=== PATIENT | female | born 1945 | race Caucasian/White ===

== ENCOUNTER 2019-08-28 07:55 | Emergency (ER) | payer MEDICARE, OTHER ==
[2019-08-28 08:24] VITALS: BP 179/92; PULSE 69
--- NOTE | 2019-08-28 08:50 | EDM.PDOC ---
ED HPI GENERAL MEDICAL PROBLEM - General Chief Complaint: Back Pain or Injury Stated Complaint: BACK PAIN Time Seen by Provider: 08/28/19 08:35 Source of Information: Reports: Patient, Family History Limitations: Reports: No Limitations - History of Present Illness INITIAL COMMENTS - FREE TEXT/NARRATIVE: 73-year-old female with chronic low back pain, has intermittent flareups of pain that usually resolve after 1 to 2 days. This current flareup started 3 days ago and does not seem to be settling down, she took 2 doses of tramadol, did her stretching and local heat and it still is bothering her so she came in to be seen. Her pain is in the right lower back extending into the buttock but has no radiculopathy, paresthesias or weakness of the leg, no incontinence. No new trauma. Onset: Gradual Duration: Day(s): (3 to 4 days of symptoms) Location: Reports: Back (Right lower back) Quality: Reports: Sharp, Stabbing Severity: Moderate Worsens with: Reports: Movement Context: Denies: Lifting, Trauma Associated Symptoms: Reports: No Other Symptoms Lower Back Pain Score (Numeric/FACES): 9 - Related Data Allergies Allergy/AdvReac Type Severity Reaction Status Date / Time erythromycin base Allergy Cannot Verified 08/28/19 08:21 Remember latex Allergy Rash Verified 08/28/19 08:21 tape Allergy Cannot Uncoded 08/28/19 08:21 Remember Home Meds: Home Meds Aspirin [Adult Low Dose Aspirin EC] 81 mg PO DAILY 04/28/13 [History] Fluticasone/Salmeterol [Advair 250-50 Diskus] 1 puff INH BID 04/28/13 [History] Montelukast [Singulair] 10 mg PO DAILY 04/28/13 [History] Simvastatin 1 tab PO DAILY 04/28/13 [History] Albuterol Sulfate [Albuterol Sulfate HFA] 1 puff IH Q4H PRN 09/27/14 [History] Azelastine [Optivar 0.05% Ophth Soln] 1 drop EYEBOTH BID PRN 09/27/14 [History] Calcium Carbonate/Vitamin D3 [Calcium 600 + Vit D 400 Tablet] 1 tab PO BID 09/27 [History] Celecoxib [CeleBREX] 200 mg PO DAILY 09/27/14 [History] Cetirizine [ZyrTEC] 10 mg PO DAILY PRN 09/27/14 [History] Vitamin E 400 unit PO DAILY 09/27/14 [History] Past Medical History HEENT History: Reports: Impaired Vision Respiratory History: Reports: Asthma Musculoskeletal History: Reports: Back Pain, Chronic, Other (See Below) Other Musculoskeletal History: left knee pain - Past Surgical History Musculoskeletal Surgical History: Reports: Other (See Below) Other Musculoskeletal Surgeries/Procedures:: disc removal total left knee Social & Family History - Tobacco Use Smoking Status *Q: Never Smoker Second Hand Smoke Exposure: No - Caffeine Use Caffeine Use: Reports: None - Alcohol Use Days Per Week of Alcohol Use: 2 Number of Drinks Per Day: 1 Total Drinks Per Week: 2 - Recreational Drug Use Recreational Drug Use: No ED ROS GENERAL - Review of Systems Review Of Systems: See Below Constitutional: Denies: Fever, Chills Respiratory: Reports: Other (History of asthma but well controlled). Denies: Shortness of Breath Cardiovascular: Denies: Chest Pain GI/Abdominal: Denies: Abdominal Pain, Nausea, Vomiting Skin: Denies: Rash Neurological: Reports: Difficulty Walking (Due to back pain). Denies: Paresthesia ED EXAM,LOWER BACK PAIN/INJURY - Physical Exam Exam: See Below Exam Limited By: No Limitations General Appearance: Alert, No Apparent Distress (Looks uncomfortable but not distressed while lying supine and still) Head: Atraumatic Respiratory/Chest: No Respiratory Distress Back Exam: Paraspinal Tenderness (Very tender to palpation along the right lumbar spine into the upper right buttock, no rash over the painful area) Neurological: No Motor/Sensory Deficits, Straight Leg Raise (L). No: Straight Leg Raise (R) Psychiatric: Normal Affect, Normal Mood Skin Exam: Warm, Dry Course - Vital Signs Last Recorded V/S: Last Vital Signs Temp 96.4 F L 08/28/19 08:25 Pulse 69 08/28/19 08:25 Resp 16 08/28/19 08:25 BP 179/92 H 08/28/19 08:25 Pulse Ox 96 08/28/19 08:25 - Re-Assessments/Exams Free Text/Narrative Re-Assessment/Exam: 08/28/19 08:48 Reviewed patient's medications, she is not on any kind of muscle relaxation and is afraid to try anything stronger for pain due to side effects. She is already on one Celebrex daily for anti-inflammatory effect, so was given 15 Flexeril to take 3 times a day along with the Celebrex and tramadol. Recheck in 2 to 3 days if not improving satisfactorily. Departure - Departure Time of Disposition: 09:13 Disposition: Home, Self-Care 01 Clinical Impression: Acute exacerbation of chronic low back pain - Discharge Information Instructions: Acute Back Pain, Adult Referrals: Arnaud Krishnamurthy MD [Primary Care Provider] - Forms: ED Department Discharge Care Plan Goals: Try Flexeril along with your other medications, and increase activity as tolerated. Return anytime if worsening such as incontinence, weakness or significant numbness in your leg otherwise recheck in 2 to 3 days if not improving satisfactorily. Sepsis Event Note (ED) - Evaluation Sepsis Screening Result: No Definite Risk - Focused Exam Vital Signs: Vital Signs Temp Pulse Resp BP Pulse Ox 08/28/19 08:25 96.4 F L 69 16 179/92 H 96 08/28/19 08:23 96.4 F L 69 16 179/92 H 96
== END 2019-08-28 09:12 | disposition home or self-care (01) ==
LOC: JP.ED 07:55
DX: M54.5 Low back pain (principal); G89.29 Other chronic pain; J45.909 Unspecified asthma, uncomplicated; Z91.048 Other nonmedicinal substance allergy status; Z79.82 Long term (current) use of aspirin; Z79.899 Other long term (current) drug therapy; Z91.040 Latex allergy status; Z88.1 Allergy status to other antibiotic agents
CPT/HCPCS: 99283

== ENCOUNTER 2022-06-17 07:52 | Day surgery (SDC) | payer MEDICARE, OTHER ==
[2022-06-17] MEDS ORDERED: Sodium Chloride 0.9% 10 ML Syringe FLUSH PRN (08:30)
[2022-06-17 08:59] VITALS: BP 167/98; PULSE 80
== END 2022-06-17 09:03 | disposition home or self-care (01) ==
LOC: JP.SDS 07:52
PROVIDERS: ATTEND Ophthalmology
DX: H26.9 Unspecified cataract (principal); J45.909 Unspecified asthma, uncomplicated; R73.9 Hyperglycemia, unspecified; E78.5 Hyperlipidemia, unspecified
CPT/HCPCS: 66984; J3490; V2632

== ENCOUNTER 2022-07-01 07:20 | Day surgery (SDC) | payer MEDICARE, OTHER ==
[2022-07-01] MEDS ORDERED: Sodium Chloride 0.9% 10 ML Syringe FLUSH ONE (09:45)
[2022-07-01 10:05] VITALS: BP 150/85; PULSE 71
== END 2022-07-01 10:10 | disposition home or self-care (01) ==
LOC: JP.SDS 07:20
PROVIDERS: ATTEND Ophthalmology
DX: H26.9 Unspecified cataract (principal); J45.909 Unspecified asthma, uncomplicated; K21.9 Gastro-esophageal reflux disease without esophagitis; E66.9 Obesity, unspecified; Z68.33 Body mass index [BMI] 33.0-33.9, adult